=== PATIENT | female | born 1985 | race Caucasian/White ===

== ENCOUNTER 2017-08-29 11:51 | Emergency (ER) | payer MEDICAID ==
[2017-08-29] MEDS ORDERED: PREDNISONE 20 MG TABLET PO ONE (13:00)
[2017-08-29] MEDS ORDERED: ALBUTEROL SULFATE HFA (90 MCG/PUFF) 8 GM MDI (1 MDI/ER DISP) IH ONE (13:00)
--- NOTE | 2017-08-29 13:01 | ER Document Report ---
ED General - General Mode of Arrival: Ambulatory Information source: Patient TRAVEL OUTSIDE OF THE [place] IN LAST 30 DAYS: No - Related Data Home Medications: albuterol. advair - General Chief Complaint: Asthma Exacerbation Stated Complaint: DIFFICULTY BREATHING,CHEST TIGHTNESS Time Seen by Provider: 08/29/17 12:37 Notes: Patient is a 32-year-old female who presents to the emergency department today with complaints of a sore throat, nasal congestion, wheezing, and a hoarse voice which began yesterday. Patient states her symptoms got worse today. Patient states her last menstrual period was 2 months ago and she is unsure if she is . (APOORVA SHEPPARD) - Related Data Allergies/Adverse Reactions: No Known Allergies Allergy (Verified 08/29/17 11:52) Past Medical History - General Information source: Patient - Social History Smoking Status: Current Some Day Smoker Cigarette use (# per day): Yes Frequency of alcohol use: Occasional Drug Abuse: None Lives with: Family Family History: Reviewed & Not Pertinent Patient has suicidal ideation: No Patient has homicidal ideation: No Pulmonary Medical History: Reports: Hx Asthma Past Surgical History: Reports: Hx Tonsillectomy Review of Systems - Review of Systems Constitutional: No symptoms reported EENT: See HPI, Nose congestion, Throat pain Cardiovascular: No symptoms reported Respiratory: See HPI, Wheezing Gastrointestinal: No symptoms reported Genitourinary: No symptoms reported Female Genitourinary: See HPI, Last menstrual period - two months ago -- unknown if Musculoskeletal: No symptoms reported Skin: No symptoms reported Hematologic/Lymphatic: No symptoms reported Neurological/Psychological: No symptoms reported -: Yes All other systems reviewed and negative Physical Exam - Vital signs Vitals: Temp Pulse Resp BP Pulse Ox 98.0 F 76 16 130/76 H 97 08/29/17 11:57 08/29/17 11:57 08/29/17 11:57 08/29/17 11:57 08/29/17 11:57 - Notes Notes: Physical Exam: General: Alert, appears well. HEENT: Normocephalic. Atraumatic. PERRL. Extraocular movements intact. Oropharynx clear. Posterior pharynx erythema over tonsillar pillars. TMs are clear bilaterally. Neck: Supple. Non-tender. Respiratory: No respiratory distress. Mild rhonchi and wheezing with forced cough. Cardiovascular: Regular rate and rhythm. Abdominal: Normal Inspection. Non-tender. No distension. Normal Bowel Sounds. Back: Non-tender. No deformity or step off. Extremities: Moves all four extremities. Upper extremities: Normal inspection. Normal ROM. Lower extremities: Normal inspection. No edema. Normal ROM. Neurological: Normal cognition. AAOx4. Normal speech. Psychological: Normal affect. Normal Mood. Skin: Warm. Dry. Normal color. (APOORVA SHEPPARD) - Vital Signs Vital signs: Temp Pulse Resp BP Pulse Ox 97.3 F 80 18 128/87 H 98 08/29/17 13:26 08/29/17 13:26 08/29/17 13:26 08/29/17 13:26 08/29/17 13:26 Discharge - Discharge Clinical Impression: Viral upper respiratory tract infection with cough, Laryngitis, Bronchitis with bronchospasm Condition: Stable Disposition: HOME, SELF-CARE Additional Instructions: Bronchitis with Bronchospasm (Wheezing) You have bronchitis with bronchospasm (wheezing). Sometimes people develop wheezing with a chest cold. This occurs either because of an underlying tendency toward asthma or because the virus itself irritates the bronchial tubes. This irritation causes cough, shortness of breath, and wheezing. Emergency treatment of bronchospasm may include adrenaline shots or bronchodilator aerosol. You may feel lightheaded and have a rapid pulse for an hour or two. Rest and get plenty of fluids. At home, we'll treat you with a bronchodilator inhaler. Corticosteroids may be required for some patients. Until you recover, avoid chemical fumes, dusts, pollens, and exercising in very cold or dry air. If you smoke, stop now! Most cases of bronchitis get better without antibiotics. We prescribe antibiotics when we believe bacteria are damaging your airways, or if there's high risk the bronchitis will worsen into pneumonia. Increase your fluid intake. A cool mist humidifier may make your lungs more comfortable. An expectorant (cough medicine that loosens phlegm) can help. Repeated episodes of bronchitis and bronchospasm may result in lung damage -- for example, chronic bronchitis, recurrent pneumonias, or emphysema. If you develop a fever, increased wheezing, chest pain, or severe shortness of breath, you should contact the doctor immediately. Laryngitis You have laryngitis. This is an inflammation of the vocal cords which leads to inability to speak normally. Any irritation to the airway can cause laryngitis. Causes include virus infection, smoke inhalation, allergy, or even trauma due to excessive talking or shouting. Rest your voice. Any vibration of the vocal cords increases and prolongs the swelling. Humidity is helpful, especially cool mist. Avoid dust, chemical fumes, and smoke. Avoid decongestants and antihistamines -- these will make you worse. You can expect to recover completely in a few days. See the physician if new symptoms develop, such as high fever, productive cough, shortness of breath, or if you do not improve within a few days. Use the inhaler 2 puffs every 4 hours for wheezing if needed. Start the prednisone as prescribed tomorrow. Try Robitussin-DM to help control your cough. Drink plenty of fluids. Get plenty of rest. Rest your voice. Follow-up with local medical doctor if not improving. RETURN TO THE EMERGENCY ROOM IF ANY NEW OR WORSENING SYMPTOMS. Prescriptions: Prednisone [Deltasone 10 mg Tablet] 10 mg PO ASDIR PRN #21 tablet PRN Reason: Scribe Attestation: 08/29/17 13:03 I personally performed the services described in the documentation, reviewed and edited the documentation which was dictated to the scribe in my presence, and it accurately records my words and actions. (SARINA NIÑO) Scribe Documentation - Scribe Written by Krystal:: Krystal Catherine, 08/29/2017 1420 acting as scribe for :: Mary
[2017-08-29 13:33] VITALS: BP 128/87
== END 2017-08-29 13:26 | disposition home or self-care (01) ==
LOC: ER 11:51
DX: J06.9 Acute upper respiratory infection, unspecified (principal); J04.0 Acute laryngitis; J45.909 Unspecified asthma, uncomplicated; J02.9 Acute pharyngitis, unspecified; R09.81 Nasal congestion; R49.0 Dysphonia; F17.210 Nicotine dependence, cigarettes, uncomplicated
CPT/HCPCS: 99284; J7512; J3490